=== PATIENT | female | born 1965 | race Caucasian/White ===

== ENCOUNTER 2016-10-10 06:48 | Inpatient (IN) | payer OTHER ==
[~2016-10-10] VITALS: Ht 154.9 cm; Wt 74.4 kg
[2016-10-10] VITALS (8 sets, daily range): BP systolic 117–150; BP diastolic 61–82
[2016-10-10] MEDS ORDERED: BUPIVACAINE-MPF/EPI 0.25% 30 ML VIAL INJ ONE (07:13)
[2016-10-10] MEDS ORDERED: ROCURONIUM 50 MG/5 ML VIAL IV ONE (07:45)
[2016-10-10] MEDS ORDERED: SUCCINYLCHOLINE CHLORIDE 200 MG/10 ML VIAL IVP ONE (07:45)
[2016-10-10] MEDS ORDERED: DEXAMETHASONE 4 MG/ML VIAL ONE (07:45)
[2016-10-10] MEDS ORDERED: PROPOFOL 200 MG/20 ML VIAL IV ONE (07:45)
[2016-10-10] MEDS ORDERED: SEVOFLURANE 250 ML BTL INH ONE (07:45)
[2016-10-10] MEDS ORDERED: ONDANSETRON 4 MG/2 ML VIAL ONE (07:45)
[2016-10-10] MEDS ORDERED: fentaNYL 0.05 MG/ML VIAL ONE (07:47)
[2016-10-10] MEDS ORDERED: MEPERIDINE 50 MG/ML SYR ONE (07:47)
[2016-10-10] MEDS ORDERED: MIDAZOLAM 2 MG/2 ML VIAL ONE (07:47)
[2016-10-10] MEDS ORDERED: TYLENOL325 M2 PO (07:48)
[2016-10-10] MEDS ORDERED: METFORMIN HYD1000 M1 PO (07:48)
[2016-10-10] MEDS ORDERED: NACL 0.9% 1,000 ML IV SCH (08:31)
[2016-10-10] MEDS ORDERED: diphenhydrAMINE 50 MG/ML VIAL IVP PRN (08:35)
[2016-10-10] MEDS ORDERED: ONDANSETRON 4 MG/2 ML VIAL IVP PRN (08:35)
[2016-10-10] MEDS ORDERED: MEPERIDINE 25 MG/ML SYR IVP PRN (08:35)
[2016-10-10] MEDS ORDERED: BLOOD GLUCOSE MONITORING 1 DEV DEV FS ONE (08:35)
[2016-10-10] MEDS ORDERED: HYDROmorphone 1 MG/ML AMP IVP PRN ×2 (08:35→11:40)
--- NOTE | 2016-10-10 11:05 | NUR ---
PT RECEIVED FROM OR ,S/P GALL STONE REMOVAL. PT BREATHING NORMALLY, LUNG SOUNDS CLEAR ALTO ALL LOBES.97% ON ROOM AIR, SR ON THE MONITOR, BOWEL SOUNDS PRESENT, , ABLE TO OPEN EYES, VS, TEMP 97.1, HR 72, RR13, B/P 134/ 73. IV INTACT ON RIGHT HAND 20G PATENT, SCDS ON, WILL CONTINUE TO MONITOR PT
[2016-10-10] MEDS ORDERED: INSULIN HUMAN REGULAR 100 UNITS/ML 10 ML VIAL SUBQ ONE (11:20)
[2016-10-10] MEDS ORDERED: INSULIN ASPART SLIDING SCALE 100 UNITS/ML VIAL SUBQ ONE (11:30)
[2016-10-10] MEDS ORDERED: INSULIN ASPART, RECOMBINANT 100 UNITS/ML VIAL SUBQ SCH (11:33)
[2016-10-10] MEDS: NACL 0.9% 1,000 ML IV SCH ×2 (11:40→19:38)
[2016-10-10] MEDS ORDERED: HYDROcodone/APAP 5/325 MG 1 TAB TAB PO PRN (11:40)
[2016-10-10] MEDS ORDERED: MORPHINE SULFATE 2 MG/ML SYR IVP PRN (11:40)
[2016-10-10] MEDS ORDERED: ONDANSETRON 4 MG/2 ML VIAL IV PRN (11:40)
[2016-10-10] MEDS ORDERED: ACETAMINOPHEN 325 MG TAB PO PRN (11:40)
--- NOTE | 2016-10-10 12:15 | NUR ---
PT REPOSITIONED, ABLE TO TALK AND EXPRESS HERSELF, NO S/S OF DISTRESS NOTED.
[2016-10-10] MEDS: MORPHINE SULFATE 4 MG/ML SYR IV PRN ×2 (13:00→19:29)
--- NOTE | 2016-10-10 13:05 | NUR ---
DR. SWAN AT BEDSIDE, ASSESSED PT, UPDATED MD WITH PT RECENT STATUS.
--- NOTE | 2016-10-10 15:01 | NUR ---
PT AT BEDSIDE.
--- NOTE | 2016-10-10 19:28 | NUR ---
REPORT GIVEN TO MEHREEN ARCHER WILL CONTINUE TO CARE FOR THE PT.
--- NOTE | 2016-10-10 20:00 | NUR ---
AOX4, LIBYAN SPEAKING, SR ON THE MONITOR, IVF NS AT 100 ML/HR, IV SITE LEFT WRIST G#22 PATENT AND INTACT, HAS 3 ABD PUNCTURES WITH DRESSING ON DUE TO S/P LAP CHOLECYSTECTOMY, TARIQ ON RIGHT SIDE WITH BLOODY DRAINAGE, MORPHINE 4 MG IVP WAS GIVEN, PATIENT RESTING AT THIS TIME.
--- NOTE | 2016-10-10 22:00 | NUR ---
PATIENT SLEEPING, MONITORED BY FREQUENT BEDSIDE CHECK.
[2016-10-11] VITALS (8 sets, daily range): BP systolic 105–161; BP diastolic 57–86
--- NOTE | 2016-10-11 | NUR ---
AWAKE, DENIES PAIN, REPOSITIONED FOR COMFORT.
--- NOTE | 2016-10-11 02:00 | NUR ---
RESTING COMFORTABLY, SR ON THE MONITOR, VS STABLE.
--- NOTE | 2016-10-11 04:16 | NUR ---
PATIENT SLEEPING COMFORTABLY, VS STABLE.
[2016-10-11] MEDS: NACL 0.9% 1,000 ML IV SCH ×3 (05:28→20:54)
[2016-10-11] MEDS: MORPHINE SULFATE 4 MG/ML SYR IV PRN (05:50)
--- NOTE | 2016-10-11 06:31 | NUR ---
AM CARE PROVIDED, MORPHINE 4 MG IVP GIVEN AT 0550 FOR ABD PAIN 03/19, PAIN REASSESSMENT DONE, PATIENT SLEEPING AT THIS TIME. TARIQ DRAIN 40 MLS DURING THIS SHIFT.
--- NOTE | 2016-10-11 08:00 | NUR ---
SLEEPING BUT EASY TO AROUSE. SPEAKS MOSTLY [place] AND [place]. NASH WELL. ABLE TO TURN TO REPOSITION SELF WITH MINIMAL ASSIST. IV 0.9 NS INFUSING AT 100 ML/HR VIA LEFT FOREARM. IV SITE CLEAR WITH GOOD BLOOD RETURN. DRESSINGS OVER RT ABDOMEN DRY AND INTACT. TARIQ DRAIN IN PLACE WITH SMALL AMT DARK RED DR. REFUSED TO GET OUT OF BED AT THIS TIME. STATES SHE IS SLEEPY FROM THE PAIN MED GIVEN TO HER EARLIER.
--- NOTE | 2016-10-11 08:28 | NUR ---
[facility] REFERRAL RECEIVED ON 10/10/16 FOR "NOT APPLICABLE." REFERRAL REASON DOES NOT MEET HIGH NUTRITION RISK CRITERIA PER HOSPITAL POLICY. PT HAS BEEN SCREENED AND CATEGORIZED MODERATE NUTRITION RISK. PATIENT WILL BE SEEN WITHIN 3-5 DAYS OF ADMISSION. 10/13-10/[address]
[2016-10-11] MEDS ORDERED: ENOXAPARIN 40 MG/0.4 ML SYR SUBQ SCH (09:00)
--- NOTE | 2016-10-11 09:00 | NUR ---
LOVENOX HELD. PER PT'S HX, PT IS GETTING BONE MARROW TREATMENT FOR HISTORY OF LOW PLATELET PROBLEMS AND IS UNDER MEDICAL CARE BY AN MD. DR. LAURA MACHADO.
--- NOTE | 2016-10-11 10:15 | NUR ---
DR. SANCHEZ HAS NOT CALLED BACK YET. PAGED AGAIN.
[2016-10-11] MEDS ORDERED: HYDROmorphone 1 MG/ML AMP IVP PRN (10:30)
[2016-10-11] MEDS ORDERED: NACL 0.9% 500 ML IV SCH (10:30)
--- NOTE | 2016-10-11 10:30 | NUR ---
ASSISTED UP TO BSC. BATH AND ORAL CARE DONE.
--- NOTE | 2016-10-11 10:50 | NUR ---
DR. SANCHEZ CALLED BACK. UPDATED ON PT'S CONDITION. GAVE ORDERS.
[2016-10-11] MEDS: MORPHINE SULFATE 2 MG/ML SYR IVP PRN ×3 (11:00→20:53)
--- NOTE | 2016-10-11 11:00 | NUR ---
MEDICATED WITH MORPHINE 2 MG IVP FOR PAIN SCALE 5/10 OVER POST OP SITE.
[2016-10-11] MEDS: ONDANSETRON 4 MG/2 ML VIAL IVP PRN ×3 (11:05→20:53)
--- NOTE | 2016-10-11 11:05 | NUR ---
C/O FEELING SL. NAUSEATED. ZOFRAN 4 MG IVP GIVEN.
--- NOTE | 2016-10-11 11:15 | NUR ---
DENIES ANY PAINS OR NAUSEA AT THIS TIME. TRANSFERRED TO MED SURG 105- A PER BED. IV 0.9 NS AT 50 ML/HR.
--- NOTE | 2016-10-11 11:20 | NUR ---
RECEIVED TRANSFER PATIENT FROM ICU FROM S/P FRANCISCA MICHAELS. PATIENT APPEARED TO BE CALM AWAKE AND RESTING WELL. AAOX4 ALBANIAN SPEAKING. NO SOB OR SIGN OF DISTRESS NOTED AT THIS TIME. INITIAL ASSESSMENT DONE. PATIENT HAS 3 DRY AND INTACT BANDAGES TO ABD AND TARIQ TO RIGHT LOWER QUADRANT WITH SEROSANGUINEOUS DRAINAGE NOTED. PATIENT DENIED ANY PAIN OR DISCOMFORT AT THIS TIME. INSTRUCTED PATIENT TO PUSH CALL LIGHT WHEN NEEDED HELPS OR FOR PAIN MEDICATIONS, PATIENT VERBALIZED UNDERSTANDING. PATIENT ALSO HAS IV 22G TO LEFT FOREARM INFUSING WELL WITH IVF. REORIENTED PATIENT TO CURRENT UNIT. PLAN OF CARE, AND PAIN MANAGEMENT DISCUSSED, PATIENT VERBALIZED UNDERSTANDING. ALL COMFORT MEASURES GIVEN. CALL LIGHT WITHIN REACH. WILL CONTINUE TO MONITOR.
--- NOTE | 2016-10-11 11:41 | NUR ---
CM NOTE INITIAL REVIEW FAXED TO [facility] / FAX# [phone], ATTN: AUGIE #[phone]
--- NOTE | 2016-10-11 12:37 | NUR ---
NORM FLORES IS HERE TO SEE PATIENT. PER MD, D/C PATIENT'S TARIQ TOMORROW IN AM. WILL FOLLOW THROUGH MD ORDER. OTHERWISE PATIENT APPEARED TO BE CALM, RESTING AND EATING LUNCH. NO SIGN OF DISTRESS NOTED. CALL LIGHT WITHIN REACH. WILL CONTINUE TO MONITOR.
--- NOTE | 2016-10-11 14:47 | NUR ---
PATIENT SLEEP WELL AND SOUNDLY IN BED. NO SIGN OF DISTRESS NOTED AT THIS TIME. ALL COMFORT AND SAFETY MEASURE IN PLACE. CALL LIGHT WITHIN REACH. WILL CONTINUE TO MONITOR.
--- NOTE | 2016-10-11 16:08 | NUR ---
PATIENT REQUEST MEDICATION FOR PAIN 8/10 AND NAUSEA. IVP MORPHINE AND ZOFRAN GIVEN, PATIENT TOLERATED WELL. NO SIGN OF DISTRESS NOTED AT THIS TIME. ALL COMFORT AND SAFETY MEASURE GIVEN. CALL LIGHT WITHIN REACH. WILL CONTINUE TO MONITOR.
--- NOTE | 2016-10-11 19:00 | NUR ---
EMPTIED 35ML OF SANGUINEOUS FOR TARIQ DRAINAGE
--- NOTE | 2016-10-11 19:14 | NUR ---
RECEIVED PT REPORT FROM BETTIE VERDE AT BEDSIDE, FOR CONTINUITY OF CARE. PT IN BED, AWAKE AND STABLE. NO S/S OF ACUTE DISTRESS.
--- NOTE | 2016-10-11 19:16 | NUR ---
ENDORSED PATIENT CURRENT PLAN OF CARE TO NIGHT NURSE BRENDA VERDE. PATIENT RESTING IN BED WITH NO SIGN OF DISTRESS NOTED
--- NOTE | 2016-10-11 19:34 | NUR ---
SHIFT ASSESSMENT DONE AT THIS TIME. PT IS A/OX 3, COOPERATIVE, NO DISTRESS. RESPONSIVE TO COMMANDS. DISCUSSED PLAN OF CARE WITH PT, VERBALIZED UNDERSTANDING. VITAL SIGNS ARE STABLE, PT ON ROOM AIR WITH OXYGEN SATURATION AT 97%, PT DENIES CHEST PAIN, SOB OR NAUSEA AT THIS TIME. NO DISCOMFORT OR PAIN NOTED. BLOOD PRESSURE IS 130/76, HR 95, RR 20, AND TEMPERATURE IS 98.2F. LUNG SOUNDS ARE CLEAR, AND BOWEL SOUNDS ARE HYPOACTIVE. NOTED ABDOMINAL DRESSINGS X3, INTACT AND DRY. NOTED TARIQ DRAIN TO RT ABDOMINAL INCISION, INTACT WITH SMALL AMOUNT OF SEROSANGUINEOUS DRAINAGE. ALL OTHER SKIN INTACT. IV ACCESS TO LEFT WRIST #22G, PATENT AND INTACT. SCD'S IN PLACE. SAFETY PRECAUTIONS IMPLEMENTED. CALL LIGHT WITHIN REACH. ALL NEEDS MET. ALL QUESTIONS ANSWERED. WILL CONTINUE TO MONITOR.
--- NOTE | 2016-10-11 20:53 | NUR ---
PROVIDED PT WITH PAIN MEDICATION PER MD ORDERS. NO ACUTE DISTRESS AT THIS TIME. WILL CONTINUE TO MONITOR PT.
--- NOTE | 2016-10-11 21:53 | NUR ---
PT NOTED SLEEPING WELL, NO PAIN NOTED. CALL LIGHT WITHIN REACH.
[2016-10-12] VITALS: BP 109/63
--- NOTE | 2016-10-12 00:15 | NUR ---
VITAL SIGNS ARE STABLE, PT OXYGEN SATURATION AT 93%. NO DISTRESS.
--- NOTE | 2016-10-12 02:09 | NUR ---
PT REMAINS IN STABLE CONDITION, NO DISTRESS NOTED. SLEEPING WELL. CALL LIGHT WITHIN REACH.
--- NOTE | 2016-10-12 04:15 | NUR ---
PT SLEEPING, NO ACUTE DISTRESS NOTED. CALL LIGHT WITHIN REACH.
--- NOTE | 2016-10-12 04:44 | NUR ---
ASSISTED PT TO VOID, NOTED YELLOW URINE. EMPTIED TARIQ DRAIN OF 30ML OF SANGUINOUS DRAINAGE. PT REMAINS STABLE.
--- NOTE | 2016-10-12 06:25 | NUR ---
PT SLEEPING AT THIS TIME. NO DISTRESS.
--- NOTE | 2016-10-12 07:27 | NUR ---
ENDORSED PT TO TONIO RN FOR CONTINUITY OF CARE AT BEDSIDE, PT STABLE. NO DISTRESS NOTED.
--- NOTE | 2016-10-12 07:27 | NUR ---
RECEIVED REPORT FROM NIGHT NURSE, PT IS AAOX4 [place]AM[place] SPEAKING.IF TO LEFT WRIST 22G INFUSING WELL, S/P LAP BRANDO ON 10/10/16 3 ABDOMINAL INCISIONS WITH BANDAGES DRY AND INTACT. TARIQ DRAIN. SCD'S NOTED. INITIAL ASSESSMENT COMPLETED, DISCUSSED PLAN OF CARE WITH PT, PT VERBALIZED UNDERSTANDING. ALL SAFETY/ FALL PRECAUTIONS MET, CALL LIGHT WITHIN REACH. WILL CONTINUE TO MONITOR.
[2016-10-12 08:00] VITALS: BP 129/77
--- NOTE | 2016-10-12 08:05 | NUR ---
PT CURRENTLY RESTING IN BED, HAVING BREAKFAST, NO S/S OF DISTRESS OR DISCOMFORT NOTED, CALL LIGHT WITHIN REACH WILL CONTINUE TO MONITOR.
[2016-10-12] MEDS ORDERED: INFLUENZA VIRUS VACCINE QUAD 0.5 ML SYR IMVAC SCH (09:00)
--- NOTE | 2016-10-12 09:25 | NUR ---
DISCUSSED DISCHARGE PLAN WITH PT, PT VERBALIZED UNDERSTANDING.
--- NOTE | 2016-10-12 10:35 | NUR ---
DRESSING CHANGED, 3 ABDOMINAL INCISIONS WITH A TOTAL OF 8 NEIDA, NO S/S OF INFECTION NOTED, TARIQ DRAIN TO LLQ DRAIN 20ML OF SANGUINOUS FLUID.
--- NOTE | 2016-10-12 11:36 | NUR ---
ALL DISCHARGE PAPERWORK SIGNED BY PT, PRESCRIPTION GIVEN, DISCHARGE INSTRUCTION/EDUCATION GIVEN, PT VERBALIZED UNDERSTANDING, REMOVED IV TIP INTACT, CHANGED PT TO HER CLOTHES, ALL NEEDS MET. AWAITING FOR SISTER TO SILK SPOOLER PT. CALL LIGHT WITHIN REACH. WILL CONTINUE TO MONITOR.
--- NOTE | 2016-10-12 12:00 | NUR ---
PT WAS WHEELED OUT TO FRONT LOBBY IN STABLE CONDITION, ALONG SIDE SISTER.
--- NOTE | 2016-10-12 14:15 | NUR ---
CM NOTE CONCURRENT REVIEW SENT TO [facility] FAX# [phone] PH# AUGIE [phone]
== END 2016-10-12 12:00 | disposition home or self-care (01) | DRG 263 ==
LOC: MMU 06:48 → MDS 06:48 → MIC 11:15 → MDS 11:44 → MTU 10-11 11:15
PROVIDERS: ADMIT Surgery; ATTEND Surgery
PROC: 0FT44ZZ Resection of Gallbladder, Percutaneous Endoscopic Approach (ICD-10-PCS; principal; 2016-10-11)
PROC: 0D9W40Z Drainage of Peritoneum with Drainage Device, Percutaneous Endoscopic Approach (ICD-10-PCS; 2016-10-11)
DX: K80.12 Calculus of gallbladder with acute and chronic cholecystitis without obstruction (principal); S36.113A Laceration of liver, unspecified degree, initial encounter; E11.9 Type 2 diabetes mellitus without complications; G89.18 Other acute postprocedural pain

== ENCOUNTER 2016-10-22 18:11 | Emergency (ER) | payer OTHER ==
[~2016-10-22] VITALS: Ht 152.4 cm; Wt 70.8 kg
[~2016-10-22 18:11] MED LIST: METFORMIN HYD1000 M1 PO; TYLENOL325 M2 PO
[2016-10-22 18:23] VITALS: BP 137/70
--- NOTE | 2016-10-22 18:34 | NUR ---
PT AMBULATED TO BED 2 AT THIS TIME.
--- NOTE | 2016-10-22 18:34 | NUR ---
50F BIB C/O WOUND CHECK; PT NOTED W/ 4 NEIDA TO BELLY BUTTON, REDNESS, W/ SLIGHT PINKISH DRAINAGE AT THIS TIME; PT C/O THROBBING PAIN, NON-RADIATING, 8/10 X 3 DAYS TO BELLY BUTTON SITE; PT NOTED W/ 2 NEIDA TO RT TOP OF ABDOMEN & 2 NEIDA TO RT SIDE OF ABDOMEN; REDNESS NOTED TO SITES; PT DENIES PAIN TO ABDOMINAL NEIDA, BUT STATES "THEY ITCH"; PT HAD KIDNEY STONE REMOVAL SURGERY AT [facility] ON 10/10/16; A&OX4, BL LUNG SOUNDS CLEAR, RR EVEN/UNLABORED, SKIN IS WARM/DRY TO TOUCH; STEADY GAIT; PT DENIES N/V/D AT THIS TIME; PT CHANGED IN GOWN, RESTING IN BED W/ HOB ELEVATED AND IN LOWEST POSITION; AT BEDSIDE; ER MD MADE AWARE OF STATUS. WILL CONTINUE TO MONITOR.
--- NOTE | 2016-10-22 19:13 | NUR ---
REPORT GIVEN TO MEHREEN BALLARD; TRANSFER OF CARE AT THIS TIME.
--- NOTE | 2016-10-22 19:21 | NUR ---
Dr. Daniel evaluating patient at bedside.
[2016-10-22] MEDS ORDERED: KETOROLAC 60 MG/2 ML VIAL IM ONE (19:40)
--- NOTE | 2016-10-22 19:46 | NUR ---
Ultrasound at bedside.
[2016-10-22 21:03] VITALS: BP 132/68
--- NOTE | 2016-10-22 21:05 | NUR ---
Patient discharged with v/s stable BY ERMD. Written and verbal after care instructions given and explained. Patient verbalized understanding. Ambulatory with steady gait. All questions addressed prior to discharge. Advised to follow up with PMD.
== END 2016-10-22 21:05 | disposition home or self-care (01) ==
LOC: MED 18:11
DX: R10.12 Left upper quadrant pain (principal); I10 Essential (primary) hypertension; E11.9 Type 2 diabetes mellitus without complications; Z90.49 Acquired absence of other specified parts of digestive tract
CPT/HCPCS: 76705; 82948; 96372; 99284; J1885; Q0092